=== PATIENT | male | born 1950 | race Caucasian/White ===

== ENCOUNTER 2020-05-05 07:49 | Observation (INO) | payer MEDICARE, BC ==
[~2020-05-05] VITALS: Ht 182.9 cm; Wt 105.1 kg
[2020-05-05] MEDS: SODIUM CHLORIDE 0.9% 1,000 ML IV SCH ×2 (08:08→16:08)
[2020-05-05] MEDS ORDERED: ATOR20TA37 PO (08:25)
[2020-05-05] MEDS ORDERED: FLUT16AE INH (08:25)
[2020-05-05] MEDS ORDERED: ALPR1TAB2 PO (08:25)
[2020-05-05] MEDS ORDERED: ESOM20CA PO (08:25)
[2020-05-05] MEDS ORDERED: LISI5TAB7 PO (08:25)
[2020-05-05 08:29] VITALS: BP 154/83
[2020-05-05] MEDS ORDERED: PLEASE ENTER HEIGHT AND WEIGHT MC SCH (08:30)
[2020-05-05] MEDS ORDERED: PLEASE ENTER ALLERGIES MC SCH (08:30)
[2020-05-05] MEDS ORDERED: MIDAZOLAM 1 MG/ML, 5ML ONE ×2 (09:25→10:00)
[2020-05-05] MEDS ORDERED: FENTANYL PF 100 MCG/2ML ONE ×2 (09:25→10:00)
[2020-05-05] MEDS ORDERED: CEFAZOLIN PMX 1GM/50ML 50 ML ONE (09:25)
[2020-05-05] MEDS ORDERED: LIDOCAINE 2%, 20ML ONE (09:26)
[2020-05-05] MEDS ORDERED: CEFAZOLIN 1,000 MG ONE (09:26)
[2020-05-05] MEDS ORDERED: HOLD MEDICATION MC PRN (10:30)
[2020-05-05] MEDS ORDERED: DIPHENHYDRAMINE 50 MG CAPSULE PO PRN (13:00)
[2020-05-05] MEDS: ALPRazolam 1MG TAB PO PRN ×2 (14:32→20:36)
[2020-05-05] MEDS: ACETAMINOPHEN 325 MG TABLET PO PRN ×2 (14:33→20:36)
[2020-05-05] MEDS: CEFAZOLIN PMX 1GM/50ML 50 ML IVPB SCH (17:32)
[2020-05-05 19:21] VITALS: BP 147/88
[2020-05-05] MEDS: FLUTICASONE NASAL SPRAY 16GM NAS SCH (20:37)
[2020-05-05] MEDS: SODIUM CHLORIDE FLUSH 10ML SYR IVF SCH (20:37)
[2020-05-05] MEDS ORDERED: ATORVASTATIN 20 MG TABLET PO SCH (21:00)
[2020-05-05] MEDS ORDERED: ZOLPIDEM 5MG TABLET PO PRN (22:30)
[2020-05-06] MEDS: SODIUM CHLORIDE 0.9% 1,000 ML IV SCH ×2 (00:08→08:34)
[2020-05-06] MEDS: CEFAZOLIN PMX 1GM/50ML 50 ML IVPB SCH (01:32)
[2020-05-06 01:53] VITALS: BP 126/80
[2020-05-06] MEDS: PANTOPRAZOLE 40MG TABLET PO SCH ×2 (04:10→05:16)
[2020-05-06] MEDS: ACETAMINOPHEN 325 MG TABLET PO PRN (04:10)
[2020-05-06] MEDS ORDERED: ACET325T26 PO (08:29)
[2020-05-06 08:32] VITALS: BP 157/80
[2020-05-06] MEDS: SODIUM CHLORIDE FLUSH 10ML SYR IVF SCH (08:34)
[2020-05-06] MEDS: FLUTICASONE NASAL SPRAY 16GM NAS SCH (08:34)
[2020-05-06] MEDS ORDERED: LISINOPRIL 5 MG TABLET PO SCH (09:00)
== END 2020-05-06 09:35 | disposition home or self-care (01) ==
LOC: CACL 07:49 → 5SO 10:18 → CACL 10:18 → 5SO 10:37 → DCLOUNGE 05-06 09:24
PROVIDERS: ADMIT Internal Medicine Cardiovascular Disease; ATTEND Internal Medicine Cardiovascular Disease
DX: R00.1 Bradycardia, unspecified (principal); I49.5 Sick sinus syndrome; I10 Essential (primary) hypertension; E78.5 Hyperlipidemia, unspecified; Z79.899 Other long term (current) drug therapy
CPT/HCPCS: 33208; 71045; 96365; 96366; 99156; C1779; C1785; C1892; G0378; J0690; J2250; J3010; J3490